=== PATIENT | female | born 1940 | race Caucasian/White ===

== ENCOUNTER 2017-03-10 08:29 | Day surgery (SDC) | payer MEDICARE, MEDICAID ==
[~2017-03-10] VITALS: Ht 156.2 cm; Wt 75.3 kg
[~2017-03-10 08:29] MED LIST: ASPIRIN81 MG PO; BROVANA15 MCG/2 M IN; BUDESONID2 IN; BUSPIRONE5 MG PO; CLINDAMYCIN HC150 MG PO; CLOPIDOGREL75 MG PO; HYDROCO/APAP1 TA9 PO; HYOSCYAMINE0.125 M1 SL; IPRATROPIU0.5 MG/3 M IN; IRON325 M1 PO; ISOSORB MONO30 MG PO; LEVOTHYROXIN75 MCG PO; LISINOPRIL5 MG PO; NITROSTAT0.4 MG SL; PANTOPRAZOLE SO40 MG PO; PRAVASTATIN20 MG PO; RANEXA PO; SERTRALINE HCL50 MG PO; VENTOLIN HFA IN; VITAMIN C500 MG PO
[2017-03-10 12:19] VITALS: BP 140/65
== END 2017-03-10 12:30 | disposition home or self-care (01) ==
LOC: ENDO 08:29 → ORM 13:15 → ENDO 13:30 → ORM 13:45
PROVIDERS: ATTEND Internal Medicine Gastroenterology
PROC: 0DB48ZX Excision of Esophagogastric Junction, Via Natural or Artificial Opening Endoscopic, Diagnostic (ICD-10-PCS; principal; 2017-03-10)
PROC: 0DB78ZX Excision of Stomach, Pylorus, Via Natural or Artificial Opening Endoscopic, Diagnostic (ICD-10-PCS; 2017-03-10)
DX: R10.13 Epigastric pain (principal); K21.9 Gastro-esophageal reflux disease without esophagitis; K29.50 Unspecified chronic gastritis without bleeding; K44.9 Diaphragmatic hernia without obstruction or gangrene; R19.7 Diarrhea, unspecified; K64.8 Other hemorrhoids; K59.00 Constipation, unspecified; E11.9 Type 2 diabetes mellitus without complications; E78.00 Pure hypercholesterolemia, unspecified; E03.9 Hypothyroidism, unspecified; Z86.010 Personal history of colon polyps; Z87.11 Personal history of peptic ulcer disease